=== PATIENT | male | born 1985 | race Caucasian/White ===

== ENCOUNTER 2017-05-11 18:41 | Emergency (ER) | payer BC ==
[~2017-05-11] VITALS: Ht 170.2 cm; Wt 74.8 kg
[~2017-05-11 18:41] MED LIST: AMOXICILLIN500 MG PO; AUGMENTIN500 MG OR; NO MEDS; ULTRAM50 M1 PO
[2017-05-11] MEDS ORDERED: CIPROFLOXACN500 MG PO (19:28)
[2017-05-11 19:31] LABS: HEMATOCRIT 47.3 % (39.0-50.0); HEMOGLOBIN 16.5 g/dl (14.0-18.0); IMMATURE GRANULOCYTES 0.5 % (0.0-1.0); MEAN CELL VOLUME 85.2 fL CALC (80.0-100.0); MEAN CORPUSCULAR HGB 29.7 pG CALC (26.0-32.0); MEAN CORPUSCULAR HGB CONC 34.9 g/L CALC (32.0-36.0); NEUT# 8.46 thou/uL (1.82-7.42); RED BLOOD COUNT 5.55 mill/uL (4.70-6.10); RED CELL DISTRI WIDTH 12.5 % (11.5-15.5)
[2017-05-11 19:37] LABS: ALBUMIN 4.8 g/dL (3.2-5.0); ALKALINE PHOSPHATASE 98 u/l (38-126); AMYLASE 52 u/l (30-110); ANION GAP 19 (6-22 (CALC)); BILIRUBIN, TOTAL 2.6 mg/dL (0.0-1.4); BUN 12 mg/dL (9-20); BUN/CREATININE RATIO 13 (12-20 (CALC)); CALCIUM 9.4 mg/dL (8.4-10.2); CARBON DIOXIDE 25 mmol/l (22-30); CHLORIDE 104 mmol/l (95-108); GFR > 60 ML/MIN (>=60 (CALC)); GFR FOR AFR.AMER. > 60 ML/MIN (>=60 (CALC)); GLUCOSE 92 mg/dL (75-110); LIPASE 231 u/l (23-300); POTASSIUM 4.2 mmol/l (3.5-5.1); SGOT/AST 25 u/l (17-59); SGPT/ALT 30 u/l (21-72); SODIUM 144 mmol/l (137-146); TOTAL PROTEIN 7.6 g/dL (6.3-8.2)
[2017-05-11 19:39] LABS: URINE BILIRUBIN - DIPSTICK NEGATIVE (NEGATIVE); URINE BLOOD DIPSTICK NEGATIVE (NEGATIVE); URINE COLOR YELLOW; URINE GLUCOSE - DIPSTICK NEGATIVE (NEGATIVE); URINE KETONE NEGATIVE (NEGATIVE); URINE LEUK ESTERASE NEGATIVE (NEGATIVE); URINE NITRITE - DIPSTICK NEGATIVE (Negative); URINE PH 5.5 (4.5-8.0); URINE PROTEIN - DIPSTICK NEGATIVE (NEG-TRACE); URINE UROBILINOGEN - DIPSTICK 0.2 E.U./dL (0.2)
[2017-05-11 19:56] LABS: URINE CLARITY CLEAR
[2017-05-11 20:51] VITALS: BP 150/95
== END 2017-05-11 20:45 | disposition home or self-care (01) | DRG 392 ==
LOC: ED 18:41
PROVIDERS: Emergency Medicine
DX: R10.32 Left lower quadrant pain (principal)

== ENCOUNTER 2020-02-29 12:42 | Emergency (ER) | payer OTHER, BC ==
[~2020-02-29] VITALS: Ht 170.2 cm; Wt 77.0 kg
[~2020-02-29 12:42] MED LIST changes: +CIPROFLOXACN500 MG PO
[2020-02-29] MEDS ORDERED: AUGMENTIN500TAB PO (14:20)
[2020-02-29 16:01] VITALS: BP 144/90
== END 2020-02-29 15:59 | disposition home or self-care (01) | DRG 605 ==
LOC: ED 12:42
PROC: 0HQKXZZ Repair Right Lower Leg Skin, External Approach (ICD-10-PCS; principal; 2020-02-29)
DX: S81.851A Open bite, right lower leg, initial encounter (principal); W54.0XXA Bitten by dog, initial encounter; Y93.89 Activity, other specified; Y99.0 Civilian activity done for income or pay